=== PATIENT | male | born 1975 | race Caucasian/White ===

== ENCOUNTER → 2021-02-02 | Outpatient (CLI) | payer SELFPAY ==
--- NOTE | 2021-02-02 12:32 | Diagnostic Imaging Report ---
EXAMINATION: CT chest without contrast (high resolution) TECHNIQUE: Prone and supine non-contrast high resolution CT images of the chest were obtained in inspiration and expiration. All CT scans use one or more of the following dose optimizing techniques: automated exposure control, MA and/or KvP adjustment based on patient size and exam type or iterative reconstruction. HISTORY: Pulmonary fibrosis COMPARISON: None available. FINDINGS: There is mild atelectasis in the dependent portions of the lungs which clears on prone imaging. There are few other linear areas of atelectasis as well. I do not see any fibrosis. No bronchiectasis. No traction bronchiectasis. No architectural distortion. No honeycombing. No groundglass. There are a few pneumatoceles. There is no edema or pneumonia. No pleural effusion. No pneumothorax. No suspicious nodules. There is no axillary or supraclavicular lymphadenopathy. There is no mediastinal lymphadenopathy. Heart size is normal. There are mild coronary artery calcifications. No pericardial effusion. Aorta is normal in caliber. Limited views of the upper abdomen are unremarkable. There are no suspicious osseus lesions. IMPRESSION: 1. Normal lungs. No pulmonary fibrosis. Dictated by: Dictated on workstation # [id number]
== END ==
LOC: RAD 10:13
PROVIDERS: ATTEND Internal Medicine
DX: J84.10 Pulmonary fibrosis, unspecified (principal)
CPT/HCPCS: 71250